=== PATIENT | male | born 1980 | race African-American/Black ===

== ENCOUNTER 2019-08-19 06:19 | Emergency (ER) | payer BC ==
[~2019-08-19] VITALS: Ht 193 cm; Wt 131.1 kg
[2019-08-19 06:25] VITALS: BP 148/78
--- NOTE | 2019-08-19 06:47 | RAD ---
TOES LEFT Clinical Indication: Fifth toe injury. Comparison: None. Findings: There is acute traumatic oblique fracture of the waist (mid diaphysis) of the fifth proximal phalanx. Distal fracture fragment is slightly laterally and posteriorly displaced. There is minimal dorsal angulation of the distal fracture fragment on the lateral view. There is no intra-articular extension. There is soft tissue swelling of the fifth toe. The mineralization is normal. No significant joint space narrowing is seen. IMPRESSION: Acute traumatic fracture of the fifth proximal phalanx. Electronically signed by: Deo He MD (08/19/2019 6:44 AM) [id number]
[2019-08-19] MEDS ORDERED: HYDR-3164 PO (07:04)
[2019-08-19] MEDS ORDERED: NAPR-683 PO (07:04)
--- NOTE | 2019-08-19 07:05 | PHYS DOC ---
Past Medical History Past Medical History: Hypertension Past Surgical History: No Surgical History Alcohol Use: Occasionally Drug Use: None Adult General Chief Complaint Chief Complaint: TOE PROBLEM HPI HPI Patient is a 39 year old male with history of hypertension who presents with complaining of left fifth toe injury. Patient states he was walking last night around 2330 at dark and hit a table with injury to left fifth toe without other injuries and focal neurodeficit. Patient complaining of increasing pain with walking and her rate and his pain 6/10. Review of Systems Review of Systems Constitutional: Denies fever or chills [] Eyes: Denies change in visual acuity, redness, or eye pain [] HENT: Denies nasal congestion or sore throat [] Respiratory: Denies cough or shortness of breath [] Cardiovascular: No additional information not addressed in HPI [] GI: Denies abdominal pain, nausea, vomiting, bloody stools or diarrhea [] : Denies dysuria or hematuria [] Musculoskeletal: Denies back pain, reports joint pain [] Integument: Denies rash or skin lesions [] Neurologic: Denies headache, focal weakness or sensory changes [] Endocrine: Denies polyuria or polydipsia [] All other systems were reviewed and found to be within normal limits, except as documented in this note. Allergies Allergies Allergies Coded Allergies Type Severity Reaction Last Updated Verified Penicillins Allergy Intermediate 08/19/19 Yes Physical Exam Physical Exam Constitutional: Well developed, well nourished, mild distress, non-toxic appearance. [] HENT: Normocephalic, atraumatic. Eyes: PERRLA, EOMI, conjunctiva normal, no discharge. [] Neck: Normal range of motion, no tenderness, supple, no stridor. [] Cardiovascular:Heart rate regular rhythm, no murmur [] Lungs & Thorax: Bilateral breath sounds clear to auscultation [] Extremities: Left fifth toe with moderate edema and tenderness and painful range of motion. Neurologic: Alert and oriented X 3, no focal deficits noted. [] Psychologic: Affect normal, judgement normal, mood normal. [] Current Patient Data Vital Signs Vital Signs Date Time Temp Pulse Resp B/P (MAP) Pulse Ox O2 Delivery O2 Flow Rate FiO2 08/19/19 06:25 98.2 106 16 148/78 (101) 98 Room Air 98.2 EKG EKG [] Radiology/Procedures Radiology/Procedures [][facility] [address] [place] [address] IMAGING REPORT Signed PATIENT: MIGUEL ANGEL GAVIN ACCOUNT: [id number] : 1980 LOCATION: ER AGE: 39 SEX: M EXAM STATUS: REG ER ORD. PHYSICIAN: FABRIZIO ZAMARRIPA MD REASON: fifth toe injury PROCEDURE: TOES LEFT TOES LEFT Clinical Indication: Fifth toe injury. Comparison: None. Findings: There is acute traumatic oblique fracture of the waist (mid diaphysis) of the fifth proximal phalanx. Distal fracture fragment is slightly laterally and posteriorly displaced. There is minimal dorsal angulation of the distal fracture fragment on the lateral view. There is no intra-articular extension. There is soft tissue swelling of the fifth toe. The mineralization is normal. No significant joint space narrowing is seen. IMPRESSION: Acute traumatic fracture of the fifth proximal phalanx. Electronically signed by: Deo He MD (08/19/2019 6:44 AM) [id number] DICTATED and SIGNED BY: DEO HE MD DATE: 08/19/19 0644 Course & Med Decision Making Course & Med Decision Making Pertinent Imaging studies reviewed. (See chart for details) Evaluation of patient in ER showed 39-year-old male patient with injury to left fifth toe last night and edema and tenderness that getting force with walking. X-ray showed upper headache fracture of proximal phalanx of fifth toe. Isael tape was applied and walking boot and crutches was provided and patient was advised to follow-up with orthopedic or podiatric on-call. Dragon Disclaimer Dragon Disclaimer This electronic medical record was generated, in whole or in part, using a voice recognition dictation system. Departure Departure Impression: Primary Impression: Fracture of proximal phalanx of toe of left foot Disposition: 01 HOME, SELF-CARE (at 0705) Referrals: JAXSON OWUSU MD (PCP) JODY WEST DPM, JOHN N MD Patient Instructions: Toe Fracture Additional Instructions: Drink plenty of liquids Follow-up with orthopedic or mortgage loan specialist( podiatric) physician in 2-3 days Return to ER if not getting better Scripts Hydrocodone/Apap 5-325 (NORCO 5-325 TABLET) 1 Each Tablet 1 TAB PO PRN Q6HRS PRN for PAIN, #10 TAB 0 Refills Prov: FABRIZIO ZAMARRIPA MD 08/19/19 Naproxen (NAPROSYN) 500 Mg Tablet 1 TAB PO BID for pain, #20 TAB Prov: FABRIZIO AZMARRIPA MD 08/19/19 FABRIZIO ZAMARRIPA MD Aug 19, 2019 07:05
== END 2019-08-19 07:42 | disposition home or self-care (01) ==
LOC: ER 06:19
DX: S92.512A Displaced fracture of proximal phalanx of left lesser toe(s), initial encounter for closed fracture (principal); I10 Essential (primary) hypertension; Z88.0 Allergy status to penicillin; W22.03XA Walked into furniture, initial encounter; Y93.01 Activity, walking, marching and hiking; Y92.89 Other specified places as the place of occurrence of the external cause; Y99.8 Other external cause status
CPT/HCPCS: 73660; 99284